=== PATIENT | male | born 1980 | race Caucasian/White ===

== ENCOUNTER 2021-04-14 11:01 | Inpatient (IN) ==
[2021-04-14] MEDS ORDERED: NYSTATIN 500,000 UNIT/5 ML UDCUP SWISH/SWAL STA (14:55)
[2021-04-14] MEDS ORDERED: SODIUM CHLORIDE 0.9% 1,000 ML IV STA (15:35)
[2021-04-14 15:58] LABS: Basophils % 0.3 % (0.0-0.8); Eosinophils # 0.1 10*3/uL (0.0-0.87); Eosinophils % 0.7 % (0.00-10.9); Hematocrit 46.4 VOL% (42.0-52.0); Hemoglobin 15.4 GM/DL (14.0-18.0); Immature Granulocytes % 1.8 %; Immature Granulocytes Absolute 0.21 #; Lymphocytes # 1.5 10*3/uL (1.4-4.0); Lymphocytes % 12.8 % (21.2-54.2); Mean Corpuscular HGB Conc 33.2 GM/DL (32-36); Mean Corpuscular Volume 83.8 FL (87-102); Mean Platelet Volume 11.4 FL (9.6-12.0); Monocytes % 10.8 % (1.7-12.7); Neutrophils % 73.6 % (38.7-73.9); Platelet Count 340 T/CUMM (130-400); Red Blood Count 5.54 MC/CUMM (3.8-5.5); Red Cell Distribution Width 13.6 % (9.3-17.3); White Blood Count 11.5 T/CUMM (4-12)
[2021-04-14 16:36] LABS: Bilirubin,Total 1.5 MG/DL (0.20-1.00); Calcium 9.2 MG/DL (8.5-10.1); Potassium 3.3 MMOL/L (3.5-5.1); Total Protein 8.3 G/DL (6.4-8.2)
[2021-04-14] MEDS ORDERED: DEXTROSE 50% 25 GM/50 ML VIAL IV PRN (17:27)
[2021-04-14] MEDS ORDERED: hydrALAZINE 20 MG/1 ML VIAL IV PRN (17:27)
[2021-04-14] MEDS ORDERED: ACETAMINOPHEN 325 MG TABLET PO PRN (17:27)
[2021-04-14] MEDS ORDERED: GLUCAGON 1 MG VIAL IM PRN (17:27)
[2021-04-14] MEDS ORDERED: CETIRIZINE 10 MG TABLET PO PRN (17:27)
[2021-04-14] MEDS ORDERED: ONDANSETRON 4 MG/2 ML VIAL IV PRN (17:27)
[2021-04-14 18:23] LABS: Risk Ratio 2.79; Thyroid Stimulating Hormone 0.914 uIU/ml (0.358-3.74); VLDL Cholesterol 20.8 MG/DL
[2021-04-14] MEDS ORDERED: cefTRIAXone 1,000 MG VIAL ONE (18:49)
[2021-04-14] MEDS: cefTRIAXone 1,000 MG in SODIUM CHLORIDE 0.9% 100 ML IV SCH (19:23)
[2021-04-14] MEDS ORDERED: FAMOTIDINE 20 MG TABLET PO SCH (21:00)
[2021-04-14] MEDS ORDERED: REMDESIVIR 200 MG in SODIUM CHLORIDE 0.9% 210 ML IV ONE (21:00)
[2021-04-14] MEDS: ENOXAPARIN 40 MG/0.4 ML SYRINGE SUBCUT SCH (21:13)
[2021-04-14] MEDS: ASCORBIC ACID 500 MG TABLET PO SCH (23:09)
[2021-04-15] MEDS: INSULIN LISPRO 100 UNIT/ML SUBCUT SCH ×5 (00:50→20:55)
[2021-04-15 04:52] LABS: Basophils % 0.4 % (0.0-0.8); Eosinophils # 0.1 10*3/uL (0.0-0.87); Eosinophils % 1.2 % (0.00-10.9); Hematocrit 42.3 VOL% (42.0-52.0); Hemoglobin 14.1 GM/DL (14.0-18.0); Immature Granulocytes % 1.6 %; Immature Granulocytes Absolute 0.18 #; Lymphocytes # 1.8 10*3/uL (1.4-4.0); Lymphocytes % 16.4 % (21.2-54.2); Mean Corpuscular HGB Conc 33.3 GM/DL (32-36); Mean Corpuscular Volume 84.8 FL (87-102); Mean Platelet Volume 11.8 FL (9.6-12.0); Monocytes % 11.3 % (1.7-12.7); Neutrophils % 69.1 % (38.7-73.9); Platelet Count 298 T/CUMM (130-400); Red Blood Count 4.99 MC/CUMM (3.8-5.5); Red Cell Distribution Width 13.7 % (9.3-17.3)
[2021-04-15 04:53] LABS: Calcium 8.6 MG/DL (8.5-10.1); Osmolality,Calculated 282.4 MOS/KG (273-304); Potassium 3.3 MMOL/L (3.5-5.1)
[2021-04-15] MEDS ORDERED: POTASSIUM CHLORIDE 20 MEQ TABLET PO PRN (08:53)
[2021-04-15] MEDS ORDERED: DEXAMETHASONE 10 MG/1 ML VIAL IV SCH (09:00)
[2021-04-15] MEDS ORDERED: CHOLECALCIFEROL 1,000 UNIT TABLET PO SCH (09:00)
[2021-04-15 09:07] LABS: Ferritin 847.4 ng/ml (26-388)
[2021-04-15] MEDS: ZINC SULFATE 220 MG CAPSULE PO SCH (09:10)
[2021-04-15] MEDS: ASPIRIN CHEW 81 MG TABLET PO SCH (09:10)
[2021-04-15] MEDS: ASCORBIC ACID 500 MG TABLET PO SCH ×2 (09:10→20:54)
[2021-04-15] MEDS: AZITHROMYCIN 250 MG TABLET PO SCH (09:10)
[2021-04-15] MEDS: DEXAMETHASONE 10 MG/1 ML VIAL IV SCH ×4 (09:30→20:59)
[2021-04-15] MEDS: CETIRIZINE 10 MG TABLET PO SCH (13:50)
[2021-04-15] MEDS: FAMOTIDINE 20 MG TABLET PO SCH ×2 (13:50→20:53)
[2021-04-15] MEDS: CHOLECALCIFEROL 5,000 UNIT TABLET PO SCH (13:50)
[2021-04-15] MEDS: ENOXAPARIN 40 MG/0.4 ML SYRINGE SUBCUT SCH (16:45)
[2021-04-15] MEDS: cefTRIAXone 1,000 MG in SODIUM CHLORIDE 0.9% 100 ML IV SCH ×2 (16:45→17:14)
[2021-04-15] MEDS: IVERMECTIN 3 MG TABLET PO SCH (17:38)
[2021-04-15] MEDS: MELATONIN 3 MG TABLET PO SCH (20:53)
[2021-04-15] MEDS ORDERED: REMDESIVIR 100 MG in SODIUM CHLORIDE 0.9% 100 ML IV SCH (21:00)
[2021-04-16] MEDS: DEXAMETHASONE 10 MG/1 ML VIAL IV SCH ×6 (01:19→21:10)
[2021-04-16 07:00] LABS: Basophils % 0.3 % (0.0-0.8); Hematocrit 45.2 VOL% (42.0-52.0); Hemoglobin 15.4 GM/DL (14.0-18.0); Immature Granulocytes % 2.3 %; Immature Granulocytes Absolute 0.25 #; Lymphocytes # 1.3 10*3/uL (1.4-4.0); Lymphocytes % 12.4 % (21.2-54.2); Mean Corpuscular HGB Conc 34.1 GM/DL (32-36); Mean Corpuscular Volume 84.2 FL (87-102); Mean Platelet Volume 11.7 FL (9.6-12.0); Monocytes % 2.8 % (1.7-12.7); Neutrophils % 82.2 % (38.7-73.9); Platelet Count 409 T/CUMM (130-400); Red Blood Count 5.37 MC/CUMM (3.8-5.5); Red Cell Distribution Width 13.2 % (9.3-17.3); White Blood Count 10.7 T/CUMM (4-12)
[2021-04-16 07:17] LABS: Ferritin 929.1 ng/ml (26-388)
[2021-04-16 07:38] LABS: Albumin 2.8 G/DL (3.4-5.0); Bilirubin,Total 0.8 MG/DL (0.20-1.00); Calcium 9.3 MG/DL (8.5-10.1); Potassium 3.8 MMOL/L (3.5-5.1); Total Protein 8.2 G/DL (6.4-8.2)
[2021-04-16] MEDS: INSULIN LISPRO 100 UNIT/ML SUBCUT SCH ×4 (08:26→21:10)
[2021-04-16] MEDS: AZITHROMYCIN 250 MG TABLET PO SCH (08:29)
[2021-04-16] MEDS: FAMOTIDINE 20 MG TABLET PO SCH ×2 (08:29→21:10)
[2021-04-16] MEDS: ASCORBIC ACID 500 MG TABLET PO SCH ×2 (08:29→21:10)
[2021-04-16] MEDS: IVERMECTIN 3 MG TABLET PO SCH (08:29)
[2021-04-16] MEDS: CHOLECALCIFEROL 5,000 UNIT TABLET PO SCH (08:29)
[2021-04-16] MEDS: CETIRIZINE 10 MG TABLET PO SCH (08:29)
[2021-04-16] MEDS: ASPIRIN CHEW 81 MG TABLET PO SCH (08:29)
[2021-04-16] MEDS: ZINC SULFATE 220 MG CAPSULE PO SCH (08:29)
[2021-04-16] MEDS: ENOXAPARIN 40 MG/0.4 ML SYRINGE SUBCUT SCH (16:30)
[2021-04-16] MEDS: cefTRIAXone 1,000 MG in SODIUM CHLORIDE 0.9% 100 ML IV SCH (17:32)
[2021-04-16] MEDS: MELATONIN 3 MG TABLET PO SCH (21:10)
[2021-04-17] MEDS: DEXAMETHASONE 10 MG/1 ML VIAL IV SCH ×5 (01:59→13:10)
[2021-04-17 06:35] LABS: Basophils % 0.3 % (0.0-0.8); Hematocrit 42.4 VOL% (42.0-52.0); Hemoglobin 14.4 GM/DL (14.0-18.0); Immature Granulocytes Absolute 0.24 #; Lymphocytes % 8.5 % (21.2-54.2); Mean Corpuscular Volume 84.1 FL (87-102); Mean Platelet Volume 11.6 FL (9.6-12.0); Monocytes % 2.5 % (1.7-12.7); Neutrophils % 86.7 % (38.7-73.9); Platelet Count 386 T/CUMM (130-400); Red Blood Count 5.04 MC/CUMM (3.8-5.5); Red Cell Distribution Width 13.2 % (9.3-17.3); White Blood Count 11.8 T/CUMM (4-12)
[2021-04-17 07:01] LABS: Calcium 9.1 MG/DL (8.5-10.1); Osmolality,Calculated 288.7 MOS/KG (273-304); Potassium 3.8 MMOL/L (3.5-5.1)
[2021-04-17 07:08] LABS: Ferritin 765.8 ng/ml (26-388)
[2021-04-17] MEDS: CETIRIZINE 10 MG TABLET PO SCH ×2 (08:23→08:58)
[2021-04-17] MEDS: AZITHROMYCIN 250 MG TABLET PO SCH ×2 (08:23→08:58)
[2021-04-17] MEDS: INSULIN LISPRO 100 UNIT/ML SUBCUT SCH ×2 (08:23→12:40)
[2021-04-17] MEDS: ASPIRIN CHEW 81 MG TABLET PO SCH ×2 (08:23→08:57)
[2021-04-17] MEDS: CHOLECALCIFEROL 5,000 UNIT TABLET PO SCH ×2 (08:24→08:58)
[2021-04-17] MEDS: ZINC SULFATE 220 MG CAPSULE PO SCH ×2 (08:24→08:58)
[2021-04-17] MEDS: ASCORBIC ACID 500 MG TABLET PO SCH ×2 (08:24→08:58)
[2021-04-17] MEDS: FAMOTIDINE 20 MG TABLET PO SCH ×2 (08:24→08:57)
[2021-04-17] MEDS: IVERMECTIN 3 MG TABLET PO SCH ×2 (08:25→08:58)
[2021-04-17 11:42] VITALS: BP 148/79
== END 2021-04-17 13:10 | disposition home or self-care (01) | DRG 177 ==
LOC: N.ED 11:01 → SUATTDRO 17:27 → N.EDINP 17:27 → N.2E 04-15 13:03
PROVIDERS: ADMIT Internal Medicine; ATTEND Internal Medicine

== ENCOUNTER 2022-01-30 15:50 | Observation (INO) ==
[2022-01-30] MEDS ORDERED: NITROGLYCERIN SL 0.4 MG TABLET SL ONE (16:27)
[2022-01-30] MEDS: NITROGLYCERIN SL 0.4 MG TABLET SL PRN ×2 (16:28→16:59)
[2022-01-30] MEDS ORDERED: ENOXAPARIN 100 MG/ML SYRINGE SUBCUT STA (16:28)
[2022-01-30 17:04] LABS: Basophils # 0.1 10*3/uL (0.0-0.2); Basophils % 0.9 % (0.0-0.8); Eosinophils # 0.3 10*3/uL (0.0-0.87); Eosinophils % 3.5 % (0.00-10.9); Hematocrit 50.6 VOL% (42.0-52.0); Hemoglobin 17.3 GM/DL (14.0-18.0); Immature Granulocytes % 0.6 %; Immature Granulocytes Absolute 0.05 #; Lymphocytes # 2.3 10*3/uL (1.4-4.0); Lymphocytes % 26.2 % (21.2-54.2); Mean Corpuscular HGB Conc 34.2 GM/DL (32-36); Mean Corpuscular Volume 83.5 FL (87-102); Monocytes # 0.7 10*3/uL (0.11-0.8); Monocytes % 8.2 % (1.7-12.7); Neutrophils % 60.6 % (38.7-73.9); Platelet Count 231 T/CUMM (130-400); Red Blood Count 6.06 MC/CUMM (3.8-5.5); Red Cell Distribution Width 13.3 % (9.3-17.3); White Blood Count 8.9 T/CUMM (4-12)
[2022-01-30 17:30] LABS: Albumin 3.7 G/DL (3.4-5.0); Calcium 9.2 MG/DL (8.5-10.1); Osmolality,Calculated 284.4 MOS/KG (273-304); Total Protein 7.2 G/DL (6.4-8.2)
[2022-01-30] MEDS ORDERED: ONDANSETRON 4 MG/2 ML VIAL IV PRN (18:14)
[2022-01-30] MEDS ORDERED: GLUCAGON 1 MG VIAL IM PRN (18:14)
[2022-01-30] MEDS ORDERED: DEXTROSE 10% 250 ML BAG IV PRN (18:14)
[2022-01-30] MEDS ORDERED: ACETAMINOPHEN 325 MG TABLET PO PRN (18:14)
[2022-01-30] MEDS ORDERED: GABAPENTIN 300 MG CAPSULE PO PRN (18:18)
[2022-01-30] MEDS: MORPHINE 2 MG/1 ML SYRINGE IV PRN (21:27)
[2022-01-30] MEDS: INSULIN REGULAR 100 UNIT/ML SUBCUT SCH (23:35)
[2022-01-30] MEDS: NITROGLYCERIN 2% OINT 1 INCH/GM PACK TOP SCH (23:35)
[2022-01-31] MEDS: NITROGLYCERIN 2% OINT 1 INCH/GM PACK TOP SCH ×3 (00:28→16:12)
[2022-01-31] MEDS ORDERED: ALBUTEROL/IPRATROPIUM 3 ML NEB RESP TX PRN (02:09)
[2022-01-31] MEDS: MORPHINE 2 MG/1 ML SYRINGE IV PRN ×2 (04:01→11:40)
[2022-01-31 06:41] LABS: Risk Ratio 3.46
[2022-01-31] MEDS: INSULIN REGULAR 100 UNIT/ML SUBCUT SCH ×3 (08:48→16:32)
[2022-01-31] MEDS ORDERED: PANTOPRAZOLE 40 MG TABLET PO SCH (09:00)
[2022-01-31] MEDS ORDERED: ASPIRIN EC 325 MG TABLET PO SCH (09:00)
[2022-01-31] MEDS ORDERED: allopurinoL 100 MG TABLET PO SCH (09:00)
[2022-01-31] MEDS ORDERED: ENOXAPARIN 120 MG/0.8 ML SYRINGE SUBCUT SCH (09:00)
[2022-01-31] MEDS ORDERED: LISINOPRIL/HCTZ 20-12.5 MG TABLET PO SCH (09:00)
[2022-01-31] MEDS: carvediloL 6.25 MG TABLET PO SCH ×2 (11:46→17:04)
[2022-01-31] MEDS ORDERED: POTASSIUM CHLORIDE RIDER 10 MEQ/100 ML PREMIX IV PRN (13:33)
[2022-01-31] MEDS ORDERED: diphenhydrAMINE CAP 50 MG CAPSULE PO ONE (13:33)
[2022-01-31] MEDS ORDERED: MAGNESIUM SULF RIDER 2 GM/50 ML PREMIX IV PRN (13:33)
[2022-01-31] MEDS ORDERED: DIAZEPAM 5 MG TABLET PO ONE (13:33)
[2022-01-31] MEDS ORDERED: HEPARIN/NACL 0.9% 2 UNITS/ML 3,000 UNIT/1,500 ML BAG IV ONE (13:44)
[2022-01-31] MEDS ORDERED: VERAPAMIL 5 MG/2 ML VIAL ONE (13:44)
[2022-01-31] MEDS ORDERED: NITROGLYCERIN DRIP 50 MG/250 ML BOTTLE IV ONE (13:44)
[2022-01-31] MEDS ORDERED: SODIUM CHLORIDE 0.45% 1,000 ML IV SCH (14:00)
[2022-01-31] MEDS ORDERED: HEPARIN 5,000 UNIT/1 ML VIAL ONE (14:08)
[2022-01-31] MEDS ORDERED: MIDAZOLAM 2 MG/2 ML VIAL ONE (14:10)
[2022-01-31] MEDS ORDERED: fentaNYL 100 MCG/2 ML VIAL ONE (14:10)
[2022-01-31 16:10] VITALS: BP 134/81
[2022-02-01] MEDS ORDERED: ENOXAPARIN 40 MG/0.4 ML SYRINGE SUBCUT SCH (09:00)
[2022-02-01] MEDS ORDERED: ATORVASTATIN 20 MG TABLET PO SCH (09:00)
== END 2022-01-31 18:57 | disposition home or self-care (01) ==
LOC: N.ED 15:50 → N.EDINP 15:50 → SUATTDRO 18:36 → N.5E 19:21
PROVIDERS: ADMIT Internal Medicine; ATTEND Family Medicine
PROC: CLCCHCL (ICD-10-PCS; 2022-01-31 14:15)